=== PATIENT | female | born 1930 | race Hispanic/Latino ===

== ENCOUNTER 2021-02-26 18:22 | Emergency (ER) | payer OTHER ==
[2021-02-26 20:06] LABS: Absolute Lymphocytes (CBC) 1.1 K/uL (0.7-4.9); Basophils % 0.8 % (0-1.3); Hematocrit 38.6 % (36.0-45.0); Lymphocytes % 19.3 % (15.3-44.8); MPV 10.7 fL (7.6-11.3); RBC Red Blood Cell Count 4.12 M/uL (3.86-4.86)
[2021-02-26 20:23] LABS: Albumin 3.9 g/dL (3.4-5.0); Bilirubin Direct 0.2 mg/dL (0-0.2); Potassium 4.7 mmol/L (3.5-5.1); Protein, Total 7.2 g/dL (6.4-8.2)
[2021-02-26] MEDS ORDERED: NA CHLORIDE 0.9% 1,000 ML ONE (20:56)
[2021-02-26] MEDS ORDERED: ONDANSETRON 4 MG/2 ML VIAL ONE (20:56)
--- NOTE | 2021-02-26 21:19 | RAD REPORT ---
EXAM DESCRIPTION: CTAbdomen Pelvis W Contrast - 02/26/2021 8:55 pm CLINICAL HISTORY: Abdominal pain. NAUSEA / VOMITING COMPARISON: No comparisons TECHNIQUE: Biphasic CT imaging of the abdomen and pelvis was performed with 100 ml non-ionic IV cont rast. All CT scans are performed using dose optimization technique as appropriate and may include automated exposure control or mA/KV adjustment according to patient size. FINDINGS: The lung bases are clear.Cholecystectomy. Postsurgical changes at the gastroesophageal harini ction. The liver, spleen, pancreas, adrenal glands and kidneys are within normal limits. No bowel obstruction, free air, free fluid or abscess. There is mild inflammation surrounding the sig moid colon where numerous diverticula are present. This suggests a mild/early acute diverticulitis. M oderate stool is present throughout the colon. The appendix is not identified as a discrete structure , however, no secondary findings of appendicitis are identified. No evidence of significant lymphad enopathy. Moderate lumbar degenerative changes are present. IMPRESSION: Mild/early acute diverticulitis of the sigmoid colon suspected. Moderate stool is presen t throughout the colon.
--- NOTE | 2021-02-26 21:45 | ER ---
Nurse's Notes [facility] Name: Samra Richards Age: 89 yrs Sex: Female : 1930 Arrival Date: 02/26/2021 Time: 18:27 Bed 15 Private MD: Diagnosis: Diverticulitis of intestine, part unspecified, without perforation or abscess without bleeding Presentation: 02/26 18:32 Chief complaint: Patient states: N/V all day. Grandson has upset stomach also, states ll1 she believes they ate bad food. No pain or fever. Coronavirus screen: Client denies travel out of the [place] in the last 14 days. At this time, the client does not indicate any symptoms associated with coronavirus-19. Ebola Screen: Patient denies travel to an Ebola-affected area in the 21 days before illness onset. Initial Sepsis Screen: Does the patient meet any 2 criteria? Does the patient have a suspected source of infection? Yes: Acute abdominal pain. Risk Assessment: Do you want to hurt yourself or someone else? Patient reports no desire to harm self or others. Onset of symptoms was February 26, 2021. 18:32 Method Of Arrival: Ambulatory ll1 18:32 Acuity: MARY 3 ll1 Historical: - Allergies: 18:30 No Known Allergies; ll1 - PMHx: 18:30 Hypertensive disorder; ll1 - PSHx: 18:30 Cholecystectomy; ll1 - Immunization history:: Flu vaccine is not up to date. - Social history:: Smoking status: Patient denies any tobacco usage or history of. Screenin:46 Abuse screen: Denies threats or abuse. Denies injuries from another. Nutritional zb screening: No deficits noted. Tuberculosis screening: No symptoms or risk factors identified. Fall Risk None identified. Assessment: 19:46 General: Appears in no apparent distress. Behavior is calm, cooperative, appropriate zb for age. Pain: Denies pain. Neuro: Level of Consciousness is awake, alert, obeys commands, Oriented to person, place, time. Cardiovascular: Patient's skin is warm and dry. Respiratory: Airway is patent Respiratory effort is even, unlabored, Respiratory pattern is regular, symmetrical. GI: Abdomen is round obese, Bowel sounds present X 4 quads. Reports nausea, vomiting, since this morning. : No deficits noted. Derm: Skin is intact, is healthy with good turgor, Skin is dry, Skin is normal. Musculoskeletal: Range of motion: intact in all extremities. Vital Signs: 18:32 BP 190 / 83; Pulse 93; Resp 17; Temp 98.0; Pulse Ox 97% ; Weight 76.2 kg; Height 5 ft. ll1 2 in. (157.48 cm); Pain 0/10; 20:55 BP 168 / 86; Pulse 75; Resp 16; Pulse Ox 99% on R/A; zb 22:02 BP 170 / 84; Pulse 80; Resp 16; Pulse Ox 98% on R/A; zb 18:32 Body Mass Index 30.73 (76.20 kg, 157.48 cm) ll1 ED Course: 18:27 Patient arrived in ED. ds1 18:30 Arm band placed on. ll1 18:34 Triage completed. ll1 19:25 Jennifer Kendrick RN is Primary Nurse. zb 19:26 [facility] High [facility]-C [facility] kb 19:26 Tristin Dubon MD is Attending Physician. kb 19:47 Patient has correct armband on for positive identification. Pulse ox on. NIBP on. zb 19:47 Initial lab(s) drawn, by me, sent to lab. Inserted saline lock: 20 gauge in right zb antecubital area, using aseptic technique. Blood collected. 20:55 CT Abd/Pelvis - IV Contrast Only In Process Unspecified. EDMS 22:02 No provider procedures requiring assistance completed. IV discontinued, intact, zb bleeding controlled, No redness/swelling at site. Pressure dressing applied. Administered Medications: 20:38 Drug: NS 0.9% 1000 ml Route: IV; Rate: 1000 ml; Site: right antecubital; zb 22:01 Follow up: Response: No adverse reaction; Marked relief of symptoms; IV Status: zb Completed infusion; IV Intake: 1000ml 20:38 Drug: Zofran (Ondansetron) 4 mg Route: IVP; Site: right antecubital; zb 22:01 Follow up: Response: No adverse reaction; Marked relief of symptoms zb 22:00 Drug: Cipro (ciprofloxacin) 500 mg Route: PO; zb 22:01 Follow up: Response: Medication administered at discharge. zb 22:00 Drug: Flagyl (metroNIDAZOLE) 500 mg Route: PO; zb 22:01 Follow up: Response: Medication administered at discharge. zb Intake: 22:01 IV: 1000ml; Total: 1000ml. zb Outcome: 21:44 Discharge ordered by . clarence 22:02 Discharged to home ambulatory. zb 22:02 Condition: stable 22:02 Discharge instructions given to patient, family, Instructed on discharge instructions, follow up and referral plans. medication usage, Demonstrated understanding of instructions, follow-up care, medications, Prescriptions given X 3. 22:05 Patient left the ED. zb Signatures: Dispatcher [employer] EDMS Latisha High, SOCIAL INSURANCE SPECIALIST-C SOCIAL INSURANCE SPECIALIST-Claudette Neal ds1 Delio Sykes, RN RN ll1 Jennifer Kendrick RN RN eliz
--- NOTE | 2021-02-26 21:45 | EDPHYS ---
Physician Documentation [facility] Name: Samra Richards Age: 89 yrs Sex: Female : 1930 Arrival Date: 02/26/2021 Time: 18:27 Bed 15 Private MD: ED Physician Tristin Dubon HPI: 02/26 22:38 This 89 yrs old Female presents to ER via Ambulatory with complaints of Nausea.kb 22:38 The patient presents to the emergency department with nausea, vomiting. Onset: The kb symptoms/episode began/occurred this morning. Possible causes: bad food exposure. The symptoms are aggravated by nothing. The symptoms are alleviated by nothing. Associated signs and symptoms: Pertinent positives: nausea, vomiting, Pertinent negatives: abdominal pain, constipation, diarrhea, fever. Severity of symptoms: At their worst the symptoms were moderate in the emergency department the symptoms have improved. The patient has not experienced similar symptoms in the past. The patient has not recently seen a physician. Pt reports nausea and vomiting that started this morning. States she hasn't had any vomiting for 3 hours, but has been nauseated. States she believes she ate some bad food last night from a plate sale. Historical: - Allergies: 18:30 No Known Allergies; ll1 - PMHx: 18:30 Hypertensive disorder; ll1 - PSHx: 18:30 Cholecystectomy; ll1 - Immunization history:: Flu vaccine is not up to date. - Social history:: Smoking status: Patient denies any tobacco usage or history of. ROS: 22:37 Constitutional: Negative for fever, chills, and weight loss. kb 22:37 Abdomen/GI: Positive for nausea and vomiting, Negative for abdominal pain, diarrhea. 22:37 All other systems are negative. Exam: 22:37 Constitutional: This is a well developed, well nourished patient who is awake, alert, kb and in no acute distress. Head/Face: Normocephalic, atraumatic. ENT: Moist Mucous membranes Cardiovascular: Regular rate and rhythm with a normal S1 and S2. No gallops, murmurs, or rubs. No pulse deficits. Respiratory: Respirations even and unlabored. No increased work of breathing, no retractions or nasal flaring. Abdomen/GI: Soft, non-tender. No distention Skin: Warm, dry with normal turgor. Normal color. MS/ Extremity: Pulses equal, no cyanosis. Neurovascular intact. Full, normal range of motion. Neuro: Awake and alert, GCS 15, oriented to person, place, time, and situation. Moves all extremities. Normal gait. Psych: Awake, alert, with orientation to person, place and time. Behavior, mood, and affect are within normal limits. Vital Signs: 18:32 BP 190 / 83; Pulse 93; Resp 17; Temp 98.0; Pulse Ox 97% ; Weight 76.2 kg; Height 5 ft. ll1 2 in. (157.48 cm); Pain 0/10; 20:55 BP 168 / 86; Pulse 75; Resp 16; Pulse Ox 99% on R/A; zb 22:02 BP 170 / 84; Pulse 80; Resp 16; Pulse Ox 98% on R/A; zb 18:32 Body Mass Index 30.73 (76.20 kg, 157.48 cm) ll1 MDM: 19:27 Patient medically screened. kb 22:37 Data reviewed: vital signs, nurses notes. Data interpreted: Pulse oximetry: on room air kb is 98 %. Interpretation: normal. Counseling: I had a detailed discussion with the patient and/or guardian regarding: the historical points, exam findings, and any diagnostic results supporting the discharge/admit diagnosis, lab results, radiology results, the need for outpatient follow up, a family practitioner, to return to the emergency department if symptoms worsen or persist or if there are any questions or concerns that arise at home. 02/26 19:27 Order name: Basic Metabolic Panel; Complete Time: 20:29 kb 02/26 19:27 Order name: CBC with Diff; Complete Time: 20:21 kb 02/26 19:27 Order name: Hepatic Function; Complete Time: 20:29 kb 02/26 19:27 Order name: Lipase; Complete Time: 20:29 kb 02/26 20:29 Order name: CT Abd/Pelvis - IV Contrast Only; Complete Time: 21:28 kb 02/26 19:27 Order name: IV Saline Lock; Complete Time: 19:45 kb 02/26 19:27 Order name: Labs collected and sent; Complete Time: 19:45 kb 02/26 21:41 Order name: PO challenge; Complete Time: 22:00 kb Administered Medications: 20:38 Drug: NS 0.9% 1000 ml Route: IV; Rate: 1000 ml; Site: right antecubital; zb 22:01 Follow up: Response: No adverse reaction; Marked relief of symptoms; IV Status: zb Completed infusion; IV Intake: 1000ml 20:38 Drug: Zofran (Ondansetron) 4 mg Route: IVP; Site: right antecubital; zb 22:01 Follow up: Response: No adverse reaction; Marked relief of symptoms zb 22:00 Drug: Cipro (ciprofloxacin) 500 mg Route: PO; zb 22:01 Follow up: Response: Medication administered at discharge. zb 22:00 Drug: Flagyl (metroNIDAZOLE) 500 mg Route: PO; zb 22:01 Follow up: Response: Medication administered at discharge. zb Disposition: 02/27 04:20 Co-signature as Attending Physician, Tristin Dubon MD. [email or web address] Disposition Summary: 02/26/21 21:44 Discharge Ordered Location: Home kb Condition: Stable kb Diagnosis - Diverticulitis of intestine, part unspecified, without perforation or abscess kb without bleeding Followup: kb - With: Emergency Department - When: As needed - Reason: Worsening of condition Followup: kb - With: Private Physician - When: 2 - 3 days - Reason: Recheck today's complaints, Continuance of care, Re-evaluation by your physician Discharge Instructions: - Discharge Summary Sheet kb - Diverticulitis, [id number] kb Forms: - Medication Reconciliation Form kb - Thank You Letter kb - Antibiotic Education kb - Prescription Opioid Use kb Prescriptions: - Flagyl 500 mg Oral Tablet - take 1 tablet by ORAL route every 8 hours for 10 days; 30 tablet; Refills: 0, kb Product Selection Permitted - Zofran 4 mg Oral Tablet - take 1 tablet by ORAL route every 6 hours As needed; 20 tablet; Refills: 0, kb Product Selection Permitted - Cipro 500 mg Oral Tablet - take 1 tablet by ORAL route every 12 hours for 10 days; 20 tablet; Refills: 0, kb Product Selection Permitted Signatures: Dispatcher [employer] Latisha Carter FNP-C FNP-Delio Mcgee, RN RN 1 Tristin Dubon MD MD 7 Jennifer Kendrick RN RN z
[2021-02-26 22:17] VITALS: TEMP 98
[2021-02-26] MEDS ORDERED: CIPROFLOXACIN HCL 500 MG TAB ONE (22:18)
[2021-02-26] MEDS ORDERED: metroNIDAZOLE 500 MG TABLET ONE (22:18)
[2021-02-26 22:21] VITALS: BP 170/84; O2SAT 98
== END 2021-02-26 22:05 | disposition home or self-care (01) ==
LOC: ER 18:22
DX: K57.32 Diverticulitis of large intestine without perforation or abscess without bleeding (principal); I10 Essential (primary) hypertension
CPT/HCPCS: 96361; 85025; 80048; 36415; 80076; 83690; 74177; 96374; 99284; Q9967; J7030; J2405

== ENCOUNTER 2021-04-30 14:52 | Inpatient (IN) | payer OTHER ==
[2021-04-30] MEDS ORDERED: ONDANSETRON 4 MG/2 ML VIAL ONE ×3 (16:23→20:28)
[2021-04-30] MEDS ORDERED: NA CHLORIDE 0.9% 1,000 ML ONE ×2 (16:23→19:12)
[2021-04-30 16:31] LABS: Albumin 3.7 g/dL (3.4-5.0); Bilirubin Direct 0.4 mg/dL (0-0.2); Bilirubin Total 1.9 mg/dL (0.2-1.0); Protein, Total 7.6 g/dL (6.4-8.2)
[2021-04-30 16:47] LABS: Potassium 3.8 mmol/L (3.5-5.1)
[2021-04-30 17:25] LABS: Absolute Lymphocytes (CBC) 0.5 K/uL (0.7-4.9); Basophils % 0.4 % (0-1.3); Hematocrit 45.2 % (36.0-45.0); Lymphocytes % 2.3 % (15.3-44.8); RBC Red Blood Cell Count 4.84 M/uL (3.86-4.86)
[2021-04-30 17:30] LABS: Urine Blood Negative (Negative); Urine Glucose Negative (Negative); Urine Protein Negative (Negative)
[2021-04-30 18:08] LABS: Platelet Estimate ADEQ
[2021-04-30 18:09] LABS: Blood Morphology Comment NOT SEEN (NOT SEEN)
--- NOTE | 2021-04-30 19:04 | RAD REPORT ---
EXAM DESCRIPTION: CT - Abdomen Pelvis W Contrast - 04/30/2021 6:31 pm CLINICAL HISTORY: Abdominal pain COMPARISON: February 2021 TECHNIQUE: Computed axial tomography of the abdomen pelvis was obtained. 100 cc Isovue-300 was admin istered intravenously. Oral contrast was not requested which limits evaluation of bowel. All CT scans are performed using dose optimization technique as appropriate and may include automated exposure control or mA/KV adjustment according to patient size. FINDINGS: The liver, spleen, adrenal and kidneys appear unremarkable. Atrophic pancreas. Cholecystectomy. Small hiatal hernia Diverticula stem from predominantly sigmoid colon. No evidence diverticulitis. Mild stranding adjacent to the descending colon. Mild wall thickening present. IMPRESSION: Mild descending colon colitis
--- NOTE | 2021-04-30 19:08 | ER ---
Nurse's Notes [facility] Name: Samra Richards Age: 89 yrs Sex: Female : 1930 Arrival Date: 04/30/2021 Time: 15:11 Bed 16 Private MD: Diagnosis: Dehydration;Elevated white blood cell count;Colitis Presentation: 04/30 15:16 Chief complaint: Patient states: vomiting/diarrhea and abd pain that began yesterday. aa5 Pt currently vomiting bile in triage. Coronavirus screen: diarrhea, nausea, vomiting. Ebola Screen: Patient negative for fever greater than or equal to 101.5 degrees Fahrenheit, and additional compatible Ebola Virus Disease symptoms. Onset of symptoms was April 2021. 15:16 Method Of Arrival: Wheelchair aa 15:16 Acuity: MARY 3 aa5 15:16 Initial Sepsis Screen: Does the patient meet any 2 criteria? HR > 90 bpm. Does the aa5 patient have a suspected source of infection? No. Patient's initial sepsis screen is negative. Risk Assessment: Do you want to hurt yourself or someone else? Patient reports no desire to harm self or others. Triage Assessment: 15:30 General: Appears distressed, uncomfortable, obese, Behavior is cooperative, appropriate bp for age, anxious. Pain: Complains of pain in abdomen. EENT: No deficits noted. Neuro: Level of Consciousness is awake, alert, obeys commands, Oriented to Appropriate for age. Cardiovascular: No deficits noted. Respiratory: No deficits noted. GI: Reports nausea, vomiting. : No signs and/or symptoms were reported regarding the genitourinary system. Derm: No deficits noted. Musculoskeletal: No deficits noted. Historical: - Allergies: 15:16 No Known Allergies; aa5 - PMHx: 15:16 Hypertensive disorder; aa5 - PSHx: 15:16 Cholecystectomy; aa5 - Immunization history:: Client reports receiving the 2nd dose of the Covid vaccine. - Social history:: Smoking status: Patient denies any tobacco usage or history of. Screenin:00 Abuse screen: Denies threats or abuse. Denies injuries from another. Nutritional bp screening: No deficits noted. Tuberculosis screening: No symptoms or risk factors identified. Fall Risk None identified. Assessment: 15:30 General: SEE TRIAGE NOTE. bp 17:00 Reassessment: No changes from previously documented assessment. Patient and/or family bp updated on plan of care and expected duration. Pain level reassessed. GI: Abdomen is non-distended. 18:00 Reassessment: No changes from previously documented assessment. Patient and/or family bp updated on plan of care and expected duration. Pain level reassessed. Patient is alert, oriented x 3, equal unlabored respirations, skin warm/dry/pink. Vital Signs: 15:16 BP 148 / 90; Pulse 131; Resp 18 S; Temp 99.5(TE); Pulse Ox 98% on R/A; Weight 81.19 kg aa5 (R); Height 5 ft. 2 in. (157.48 cm); 17:24 BP 173 / 86; Pulse 117; Resp 18; Pulse Ox 96% on R/A; dh3 17:34 Temp 98.7(O); dh3 19:00 BP 161 / 78; Pulse 125; Resp 16; Pulse Ox 98% ; bp 18 00:05 BP 136 / 78 RA Supine (auto/lg); Pulse 110; Resp 19 S; Temp 100.5(O); Pulse Ox 98% on bs2 R/A; Pain 0/10; 04/30 15:16 Body Mass Index 32.74 (81.19 kg, 157.48 cm) aa5 ED Course: 04/30 15:11 Patient arrived in ED. as 15:16 Triage completed. aa5 15:16 Arm band placed on. aa5 15:19 Latisha High [facility]-C [facility]. kb 15:19 Augustine Cotter MD is Attending Physician. kb 15:20 Ankit Singh, KIT is Primary Nurse. bp 16:00 Patient has correct armband on for positive identification. Bed in low position. Call bp light in reach. Side rails up X2. Adult w/ patient. 17:10 IV discontinued, intact, bleeding controlled, Pressure dressing applied. dh3 17:12 Lab(s) recollected, by me, sent to lab. Inserted saline lock: 22 gauge in left dh3 antecubital area, using aseptic technique. Blood collected. 18:31 CT Abd/Pelvis - IV Contrast Only In Process Unspecified. EDMS 19:08 Patrick Feldman MD is Hospitalizing Provider. kb 19:58 Lipase Sent. bs2 19:58 Hepatic Function Sent. bs2 19:58 CBC with Diff Sent. bs2 19:59 Basic Metabolic Panel Sent. bs2 20:47 Lactate Sent. bs2 20:47 Procalcitonin Sent. bs2 05/01 00:03 No provider procedures requiring assistance completed. Patient admitted, IV remains in bs2 place. Administered Medications: 04/30 16:00 Drug: NS 0.9% 1000 ml Route: IV; Rate: 1000 ml; Site: left forearm; bp 20:47 Follow up: IV Status: Completed infusion bs2 16:00 Drug: Zofran (Ondansetron) 4 mg Route: IVP; Site: left forearm; bp 17:52 Follow up: Response: No adverse reaction bp 17:45 Drug: Zofran (Ondansetron) 4 mg Route: IVP; Site: left antecubital; bp 19:58 Follow up: Response: No adverse reaction bs2 20:46 Drug: Flagyl (metroNIDAZOLE) 500 mg Volume: 100 ml; Route: IVPB; Rate: 200 ml/hr; bs2 Infused Over: 30 mins; Site: left antecubital; 21:48 Follow up: IV Status: Completed infusion bs2 20:46 Drug: Zofran (Ondansetron) 4 mg Route: IVP; Site: left antecubital; bs2 21:48 Follow up: Response: No adverse reaction bs2 20:47 Drug: NS 0.9% 1000 ml Route: IV; Rate: 125 ml/hr; Site: left antecubital; bs2 23:50 Follow up: IV Status: Infusion continued upon admission bs2 20:47 Drug: NS 0.9% 500 ml Route: IV; Rate: bolus; Site: left antecubital; bs2 21:48 Follow up: IV Status: Completed infusion bs2 21:48 Drug: Cipro (ciprofloxacin) 400 mg Volume: 200 ml; Route: IVPB; Infused Over: 60 mins; bs2 Site: left forearm; 23:50 Follow up: IV Status: Completed infusion bs2 Outcome: 19:08 Decision to Hospitalize by Provider. clarence 05/01 00:03 Admitted to Med/surg via stretcher, room 214, with chart, Report called to Margaret bs2 Condition: stable Instructed on the need for admit. 00:05 Patient left the ED. bs2 Signatures: Dispatcher [employer] Latisha Carter, DISPATCH CLERK-C DISPATCH CLERK-Marilyn Mccarthy as Cheli Soto, RN RN aa5 Brooklyn Dunlap 3 Ankit Singh, RN RN bp Elzbieta Norwood, RN RN bs2
--- NOTE | 2021-04-30 19:09 | EDPHYS ---
Physician Documentation [facility] Name: Samra Richards Age: 89 yrs Sex: Female : 1930 Arrival Date: 04/30/2021 Time: 15:11 Bed 16 Private MD: ED Physician Augustine Cotter HPI: 04/30 20:44 This 89 yrs old Female presents to ER via Wheelchair with complaints of kb Vomiting. 20:44 The patient presents to the emergency department with nausea, vomiting, diarrhea, kb abdominal pain. Onset: The symptoms/episode began/occurred last night. Possible causes: unknown. The symptoms are aggravated by nothing. The symptoms are alleviated by nothing. Associated signs and symptoms: Pertinent positives: abdominal pain, diarrhea, nausea, vomiting. Severity of symptoms: At their worst the symptoms were moderate in the emergency department the symptoms are unchanged. The patient has not experienced similar symptoms in the past. The patient has not recently seen a physician. Pt reports n/v/d and abd pain that started at approx 2000 last night. Historical: - Allergies: 15:16 No Known Allergies; aa5 - PMHx: 15:16 Hypertensive disorder; aa5 - PSHx: 15:16 Cholecystectomy; aa5 - Immunization history:: Client reports receiving the 2nd dose of the Covid vaccine. - Social history:: Smoking status: Patient denies any tobacco usage or history of. ROS: 20:43 Constitutional: Negative for fever, chills, and weight loss. kb 20:43 Abdomen/GI: Positive for abdominal pain, nausea, vomiting, and diarrhea. 20:43 All other systems are negative. Exam: 20:43 Constitutional: This is a well developed, well nourished patient who is awake, alert, kb and in no acute distress. Head/Face: Normocephalic, atraumatic. ENT: Moist Mucous membranes Cardiovascular: Regular rate and rhythm with a normal S1 and S2. No gallops, murmurs, or rubs. No pulse deficits. Respiratory: Respirations even and unlabored. No increased work of breathing, no retractions or nasal flaring. Skin: Warm, dry with normal turgor. Normal color. MS/ Extremity: Pulses equal, no cyanosis. Neurovascular intact. Full, normal range of motion. Neuro: Awake and alert, GCS 15, oriented to person, place, time, and situation. Moves all extremities. Normal gait. Psych: Awake, alert, with orientation to person, place and time. Behavior, mood, and affect are within normal limits. 20:43 Abdomen/GI: Inspection: abdomen appears normal, Bowel sounds: normal, Palpation: soft, in all quadrants, mild abdominal tenderness, in the right upper quadrant and left upper quadrant. Vital Signs: 15:16 BP 148 / 90; Pulse 131; Resp 18 S; Temp 99.5(TE); Pulse Ox 98% on R/A; Weight 81.19 kg aa5 (R); Height 5 ft. 2 in. (157.48 cm); 17:24 BP 173 / 86; Pulse 117; Resp 18; Pulse Ox 96% on R/A; dh3 17:34 Temp 98.7(O); dh3 19:00 BP 161 / 78; Pulse 125; Resp 16; Pulse Ox 98% ; bp 05/01 00:05 BP 136 / 78 RA Supine (auto/lg); Pulse 110; Resp 19 S; Temp 100.5(O); Pulse Ox 98% on bs2 R/A; Pain 0/10; 04/30 15:16 Body Mass Index 32.74 (81.19 kg, 157.48 cm) aa5 MDM: 04/30 15:19 Patient medically screened. kb 20:42 Data reviewed: vital signs, nurses notes. Data interpreted: Pulse oximetry: on room air kb is 98 %. Interpretation: normal. Counseling: I had a detailed discussion with the patient and/or guardian regarding: the historical points, exam findings, and any diagnostic results supporting the discharge/admit diagnosis, lab results, radiology results, the need for further work-up and treatment in the hospital. Physician consultation: Scott GORE was contacted at 20:43, regarding admission, to the medical/surgical unit. patient's condition, and will see patient in ED, shortly. 20:44 Differential diagnosis: Nonspecific abd pain, gastritis, diverticulitis, viral kb gastroenteritis. 04/30 15:19 Order name: Basic Metabolic Panel kb 04/30 15:19 Order name: CBC with Diff kb 04/30 15:19 Order name: Hepatic Function kb 04/30 15:19 Order name: Lipase kb 04/30 15:19 Order name: Basic Metabolic Panel; Complete Time: 16:53 EDMS 04/30 15:19 Order name: CBC with Automated Diff; Complete Time: 18:22 EDMS 04/30 15:20 Order name: Liver (Hepatic) Function; Complete Time: 16:53 EDMS 04/30 15:20 Order name: Lipase; Complete Time: 16:53 EDMS 04/30 17:30 Order name: Urine Dipstick-Ancillary; Complete Time: 17:31 EDMS 04/30 18:08 Order name: Manual Differential; Complete Time: 18:22 EDMS 04/30 19:08 Order name: Blood Culture Adult (2) kb 04/30 19:08 Order name: Procalcitonin; Complete Time: 21:38 kb 04/30 19:08 Order name: Lactate; Complete Time: 21:38 kb 04/30 15:19 Order name: IV Saline Lock; Complete Time: 16:41 kb 04/30 15:19 Order name: Labs collected and sent; Complete Time: 16:41 kb 04/30 15:19 Order name: EKG; Complete Time: 15:20 kb 04/30 15:19 Order name: EKG - Nurse/Tech; Complete Time: 16:41 kb 04/30 15:19 Order name: CT Abd/Pelvis - IV Contrast Only; Complete Time: 19:05 kb 04/30 16:32 Order name: Labs - recollect needed: recollect cbc hemolyzed; Complete Time: 17:17 eb 04/30 16:54 Order name: Vital Signs; Complete Time: 17:31 kb 04/30 20:11 Order name: SARS-COV-2 RT PCR; Complete Time: 20:11 EDMS Administered Medications: 16:00 Drug: NS 0.9% 1000 ml Route: IV; Rate: 1000 ml; Site: left forearm; bp 20:47 Follow up: IV Status: Completed infusion bs2 16:00 Drug: Zofran (Ondansetron) 4 mg Route: IVP; Site: left forearm; bp 17:52 Follow up: Response: No adverse reaction bp 17:45 Drug: Zofran (Ondansetron) 4 mg Route: IVP; Site: left antecubital; bp 19:58 Follow up: Response: No adverse reaction bs2 20:46 Drug: Flagyl (metroNIDAZOLE) 500 mg Volume: 100 ml; Route: IVPB; Rate: 200 ml/hr; bs2 Infused Over: 30 mins; Site: left antecubital; 21:48 Follow up: IV Status: Completed infusion bs2 20:46 Drug: Zofran (Ondansetron) 4 mg Route: IVP; Site: left antecubital; bs2 21:48 Follow up: Response: No adverse reaction bs2 20:47 Drug: NS 0.9% 1000 ml Route: IV; Rate: 125 ml/hr; Site: left antecubital; bs2 23:50 Follow up: IV Status: Infusion continued upon admission bs2 20:47 Drug: NS 0.9% 500 ml Route: IV; Rate: bolus; Site: left antecubital; bs2 21:48 Follow up: IV Status: Completed infusion bs2 21:48 Drug: Cipro (ciprofloxacin) 400 mg Volume: 200 ml; Route: IVPB; Infused Over: 60 mins; bs2 Site: left forearm; 23:50 Follow up: IV Status: Completed infusion bs2 Disposition: 05/01 08:08 Co-signature as Attending Physician, Augustine Cotter MD I agree with the assessment and kdr plan of care. Disposition Summary: 04/30/21 19:08 Hospitalization Ordered Hospitalization Status: Inpatient Admission kb Provider: Patrick Feldman Location: Telemetry/MedSurg (Inpatient) kb Condition: Stable kb Problem: new kb Symptoms: are unchanged kb Bed/Room Type: Standard Room Assignment: 214(04/30/21 22:16) cg Diagnosis - Dehydration kb - Elevated white blood cell count kb - Colitis kb Forms: - Medication Reconciliation Form kb - SBAR form kb Signatures: Dispatcher [employer] Latisha Carter, ASHLEY-C ASHLEY-Augustine Hanna MD MD kdr Calderon, Audri RN RN aa5 Scott Cordoba FNP-C DINING SERVICE SUPERVISOR-Cla1 Pita Lester, KIT RN Ankit Soriano RN RN Shilpi Burton Bridget RN RN bs2 Corrections: (The following items were deleted from the chart) 04/30 19:16 15:20 CORONAVIRUS+MR.LAB.BRZ ordered. EDOR EDMS 22:16 19:08 kb cg
--- NOTE | 2021-04-30 20:03 | P.HP ---
Certification for Inpatient Patient admitted to: Inpatient With expected LOS: >2 Midnights Patient will require the following post-hospital care: None Practitioner: I am a practitioner with admitting privileges, knowledge of patient current condition, hospital course, and medical plan of care. Services: Services provided to patient in accordance with Admission requirements found in Title 42 Section 412.3 of the Code of Federal Regulations Patient History Date of Service: 04/30/21 Primary Care Provider: Out of town Reason for admission: Colitis History of Present Illness: 89-year-old female with history of hypertension, GERD, arthritis presents emergency [place] for abdominal pain, nausea, vomiting, diarrhea. Pat ient reports nausea, vomiting, abdominal pain started last night has been unable to tolerate any by mouth over the course of last 12 hours. Patient was evaluated in the emergency room and labs are significant for white blood cell count 23 hemoglobin 15.1 hematocrit 45.2 with left shift sodium 134 CO2 19 BUN 35 GFR 47 glucose 175 urinalysis negative for signs of infection CT abdomen pelvis with contrast demonstrated mild ascending colitis. Patient with mild left-sided abdominal tenderness on exam and tachycardic with rate around 110-120 sinus tachycardia. Procalcitonin, lactate, blood cultures ordered and pending at this time patient started on Cipro/Flagyl IV. ED provider wishes to admit for further evaluation and management of colitis. - Past Medical/Surgical History -: Hypertension -: GERD -: Arthritis -: Cholecystectomy -: Appendectomy -: Hernia repair Psychosocial/ Personal History: Patient is retired lives at home with her son - Family History Brother -: Cancer - Social History Smoking Status: Never smoker Alcohol use: No CD- Drugs: No Caffeine use: No Place of Residence: Home Review of Systems 10-point ROS is otherwise unremarkable General: Weakness, Malaise Gastrointestinal: Nausea, Vomiting, Abdominal Pain Physical Examination - Physical Exam General: Alert, In no apparent distress, Oriented x3 HEENT: Atraumatic, PERRLA, Other (Mucous membranes dry), EOMI, Sclerae nonicteric Neck: Supple, 2+ carotid pulse no bruit, No LAD, Without JVD or thyroid abnormality Respiratory: Clear to auscultation bilaterally, Normal air movement Cardiovascular: Regular rate/rhythm, Normal S1 S2 Gastrointestinal: Normal bowel sounds, Tenderness (Mild left-sided abdominal tenderness) Musculoskeletal: No tenderness Integumentary: No rashes Neurological: Normal gait, Normal speech, Normal strength at 5/5 x4 extr, Normal tone, Normal affect Lymphatics: No axilla or inguinal lymphadenopathy - Studies Laboratory Data (last 24 hrs) 04/30/21 17:08: WBC 23.00 H*, Hgb 15.1 H, Hct 45.2 H, Plt Count 185 04/30/21 16:00: Sodium 134 L, Potassium 3.8, BUN 35 H, Creatinine 1.10, Glucose 175 H, Total Bilirubin 1.9 H, AST 22, ALT 19, Alkaline Phosphatase 161 H, Lipase 21 L Assessment and Plan - Plan Assessment: Leukocytosis, intractable vomiting, diarrhea, abdominal pain secondary to descending colitis Hypertension GERD Arthritis Plan: Leukocytosis, intractable vomiting, diarrhea, abdominal pain secondary to descending colitis: Continue with n.p.o. status, IV fluids, IV Cipro/Flagyl, blood cultures/lactate levels pending. Patient without severe sepsis or septic shock at this time. 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 A discharge patient will need to follow-up with gastroenterology. We will also provide medication for refluxProtonix. Stool studies ordered Hypertension: N.p.o. at this time will provide medication as needed. GERD: IV Protonix Arthritis: As needed medications DVT PPX: Lovenox Code status: Full Discharge Plan: Home Plan to discharge in: 72 Hours - Advance Directives Does patient have a Living Will: No Does patient have a Durable POA for Healthcare: No - Code Status/Comfort Care Code Status Assessed: Yes (Full code) Critical Care: No Time Spent Managing Pts Care (In Minutes): 55
[2021-04-30] MEDS ORDERED: CIPROFLOXACIN 400mg IV 400 MG/200 ML BAG IV ONE (20:28)
[2021-04-30] MEDS ORDERED: METRONIDAZOLE 500mg IVPB 500 MG/100 ML BAG IV ONE (20:28)
[2021-04-30] MEDS: NA CHLORIDE 0.9% 1,000 ML IV SCH (20:51)
[2021-04-30] MEDS ORDERED: SODIUM CHLORIDE 0.9% 10ML INJ IV PRN (20:51)
[2021-04-30] MEDS ORDERED: PROMETHAZINE INJ 25 MG/ML AMP IV ONE (21:00)
[2021-04-30] MEDS: PANTOPRAZOLE 40 MG INJ IVP SCH (21:00)
[2021-04-30] MEDS ORDERED: CIPROFLOXACIN 400mg IV 400 MG/200 ML BAG IV SCH (21:00)
[2021-04-30] MEDS ORDERED: PROMETHAZINE INJ 25 MG/ML AMP ONE (21:32)
[2021-04-30] MEDS ORDERED: PANTOPRAZOLE 40 MG INJ ONE (21:55)
[2021-05-01] MEDS: ONDANSETRON 4 MG/2 ML VIAL IV PRN ×3 (00:42→18:22)
[2021-05-01 01:19] VITALS: BMI 32.1
[2021-05-01] MEDS: METRONIDAZOLE 500mg IVPB 500 MG/100 ML BAG IV SCH ×3 (01:20→16:52)
[2021-05-01 04:36] LABS: Absolute Lymphocytes (CBC) 0.7 K/uL (0.7-4.9); Basophils % 0.3 % (0-1.3); Hematocrit 38.4 % (36.0-45.0); Lymphocytes % 3.8 % (15.3-44.8); MPV 10.2 fL (7.6-11.3); RBC Red Blood Cell Count 4.06 M/uL (3.86-4.86)
[2021-05-01 04:53] LABS: Albumin 2.9 g/dL (3.4-5.0); Bilirubin Total 1.6 mg/dL (0.2-1.0); Magnesium 1.7 mg/dL (1.8-2.4); Potassium 3.2 mmol/L (3.5-5.1); Protein, Total 5.9 g/dL (6.4-8.2); Thyroid Stimulating Hormone 0.492 uIU/mL (0.360-3.740)
[2021-05-01 05:21] LABS: Urine Appearance CLEAR (Clear); Urine Bilirubin NEGATIVE (Negative); Urine Blood NEGATIVE (Negative); Urine Color DK YELLOW (Yellow); Urine Glucose NEGATIVE (Negative); Urine Protein NEGATIVE (Negative); Urine Specific Gravity >=1.030 (1.005-1.030); Urine Urobilinogen 0.2 mg/dL (0.2-1.0)
[2021-05-01 05:38] LABS: Urine Microscopic Reflex NO UMIC
--- NOTE | 2021-05-01 06:01 | P.PN ---
Subjective Date of Service: 05/01/21 Primary Care Provider: Out of town Chief Complaint: Colitis Subjective: Improving (Feeling better this morning, no nausea, abdominal pain improved, reports dry mouth, diarrhea yesterday) Review of Systems 10-point ROS is otherwise unremarkable Physical Examination - Vital Signs Temperature: 98.0 F Blood Pressure: 139/65 Pulse: 76 Respirations: 17 Pulse Ox (%): 94 - Studies Laboratory Data (last 24 hrs) 04/30/21 17:08: WBC 23.00 H*, Hgb 15.1 H, Hct 45.2 H, Plt Count 185 04/30/21 16:00: Sodium 134 L, Potassium 3.8, BUN 35 H, Creatinine 1.10, Glucose 175 H, Total Bilirubin 1.9 H, AST 22, ALT 19, Alkaline Phosphatase 161 H, Lipase 21 L Assessment & Plan Physician Review Additional Text: Physical exam GEN: Alert, oriented, NAD HEENT: Normal conjunctiva, sclera anicteric CV: Regular rate and rhythm, no edema Pulm: Non-labored respiration on room air ABD: Soft, mild-mod abdominal tenderness, no distention Neuro: Normal speech, normal affect Problem List Leukocytosis, intractable vomiting, diarrhea, abdominal pain secondary to descending colitis Hypertension GERD Arthritis Can have ice chips this morning, advance to clear liquid diet for dinner if doing well Continue IV fluids Continue Cipro and Flagyl Follow blood cultures Patient does not appear septic She feels that she is improving, no longer with nausea Obtain/confirm home medications, restart home antihypertensives once taking p.o. and patient is hypertensive DVT PPX: Lovenox Code status: Full Dispo: Anticipate discharge home in 1-2 days Time Spent Managing Pts Care (In Minutes): 35
[2021-05-01] MEDS ORDERED: MAGNESIUM SULFATE 1 gm IVPB 1 GM/100 ML BAG IV ONE (06:28)
[2021-05-01] MEDS: NA CHLORIDE 0.9% 1,000 ML IV SCH ×2 (06:41→16:52)
[2021-05-01] MEDS: KCL 20 MEQ/100 mL IVPB 20 MEQ/100 ML BAG IV SCH ×2 (06:42→11:19)
[2021-05-01] MEDS: PANTOPRAZOLE 40 MG INJ IVP SCH ×2 (08:34→21:03)
[2021-05-01] MEDS: ENOXAPARIN 30 MG/0.3 ML SQ SCH (08:34)
[2021-05-01] MEDS ORDERED: CIPROFLOXACIN 400mg IV 400 MG/200 ML BAG IV SCH (09:00)
[2021-05-01] MEDS ORDERED: ENOXAPARIN 40 MG/0.4 ML SQ SCH (09:00)
[2021-05-01] MEDS: CIPROFLOXACIN 400mg IV 400 MG/200 ML BAG IV SCH (21:03)
[2021-05-02] MEDS: METRONIDAZOLE 500mg IVPB 500 MG/100 ML BAG IV SCH ×3 (00:41→17:00)
[2021-05-02] MEDS: KCL 20 MEQ/100 mL IVPB 20 MEQ/100 ML BAG IV SCH ×2 (00:45→04:56)
[2021-05-02] MEDS: NA CHLORIDE 0.9% 1,000 ML IV SCH (02:51)
[2021-05-02 05:55] LABS: Basophils % 0.3 % (0-1.3); Hematocrit 34.5 % (36.0-45.0); Lymphocytes % 8.5 % (15.3-44.8); RBC Red Blood Cell Count 3.71 M/uL (3.86-4.86)
--- NOTE | 2021-05-02 06:00 | P.PN ---
Subjective Date of Service: 05/02/21 Primary Care Provider: Out of town Chief Complaint: Colitis Subjective: Improving (Slight abdominal pain last night with some mild nausea. Tolerating clear liquid diet this morning, no nausea or pain this morning. States she is starting to feel better. Continues with some diarrhea) Review of Systems 10-point ROS is otherwise unremarkable Physical Examination - Vital Signs Temperature: 97.8 F Blood Pressure: 131/64 Pulse: 94 Respirations: 17 Pulse Ox (%): 97 Assessment & Plan Physician Review Additional Text: Physical exam GEN: Alert, oriented, NAD HEENT: Normal conjunctiva, sclera anicteric CV: Regular rate and rhythm, no edema Pulm: Non-labored respiration on room air ABD: Soft, mild abdominal tenderness, no distention Neuro: Normal speech, normal affect Problem List Leukocytosis, intractable vomiting, diarrhea, abdominal pain secondary to descending colitis Hypertension GERD Arthritis Advance to full liquids for lunch, soft diet for dinner if continues to do well DC IV fluids Continue Cipro and Flagyl Blood cultures with no growth so far She feels that she is improving, no longer with nausea since yesterday restart home antihypertensives once taking p.o. and appropriate DVT PPX: Lovenox Code status: Full Dispo: Anticipate discharge home tomorrow if continues to improve, tolerates diet Time Spent Managing Pts Care (In Minutes): 40
[2021-05-02 06:28] LABS: Albumin 2.6 g/dL (3.4-5.0); Magnesium 1.6 mg/dL (1.8-2.4); Potassium 3.6 mmol/L (3.5-5.1)
[2021-05-02 06:32] LABS: Bilirubin Total 1.3 mg/dL (0.2-1.0); Protein, Total 5.4 g/dL (6.4-8.2)
[2021-05-02] MEDS ORDERED: MAGNESIUM SULFATE 1 gm IVPB 1 GM/100 ML BAG IV ONE (09:00)
[2021-05-02] MEDS: PANTOPRAZOLE 40 MG INJ IVP SCH (09:40)
[2021-05-02] MEDS: ENOXAPARIN 30 MG/0.3 ML SQ SCH (09:40)
[2021-05-02] MEDS: ONDANSETRON 4 MG/2 ML VIAL IV PRN ×2 (17:00→22:08)
[2021-05-02] MEDS: CIPROFLOXACIN 400mg IV 400 MG/200 ML BAG IV SCH (20:23)
[2021-05-02] MEDS ORDERED: POTASSIUM CL SA 10 MEQ TAB PO ONE (21:00)
[2021-05-03] MEDS: METRONIDAZOLE 500mg IVPB 500 MG/100 ML BAG IV SCH ×3 (00:32→16:00)
[2021-05-03 05:38] LABS: Basophils % 0.2 % (0-1.3); Hematocrit 32.7 % (36.0-45.0); Lymphocytes % 11.9 % (15.3-44.8); MPV 9.7 fL (7.6-11.3); RBC Red Blood Cell Count 3.43 M/uL (3.86-4.86)
[2021-05-03 05:57] LABS: Albumin 2.5 g/dL (3.4-5.0); Bilirubin Total 0.8 mg/dL (0.2-1.0); Magnesium 1.6 mg/dL (1.8-2.4); Potassium 3.7 mmol/L (3.5-5.1); Protein, Total 5.2 g/dL (6.4-8.2)
[2021-05-03] MEDS: ENOXAPARIN 30 MG/0.3 ML SQ SCH (08:04)
[2021-05-03] MEDS ORDERED: POTASSIUM CL SA 10 MEQ TAB PO ONE (09:00)
[2021-05-03] MEDS ORDERED: MAGNESIUM SULFATE 1 gm IVPB 1 GM/100 ML BAG IV ONE (09:00)
[2021-05-03] MEDS: MORPHINE 2 MG/ML SYR IV PRN ×3 (10:00→22:39)
[2021-05-03] MEDS: ONDANSETRON 4 MG/2 ML VIAL IV PRN ×3 (10:18→22:36)
[2021-05-03] MEDS ORDERED: LIDOCAINE 1% W/EPI 1:100,000 MDV 20 ML VIAL ONE (11:09)
--- NOTE | 2021-05-03 17:43 | P.PN ---
Subjective Date of Service: 05/03/21 Primary Care Provider: Out of town Chief Complaint: Colitis Subjective: Worsening (Had worsening abdominal pain after eating Jell-O this morning. Some slight nausea associated with this.) Review of Systems 10-point ROS is otherwise unremarkable Physical Examination - Vital Signs Temperature: 97.3 F Blood Pressure: 157/74 Pulse: 72 Respirations: 17 Pulse Ox (%): 94 Assessment & Plan Physician Review Additional Text: Physical exam GEN: Alert, oriented, uncomfortable appearing HEENT: Normal conjunctiva, sclera anicteric CV: Regular rate and rhythm, no edema Pulm: Non-labored respiration on room air ABD: Soft, mild abdominal tenderness, no distention Neuro: Normal speech, normal affect Problem List Leukocytosis, intractable vomiting, diarrhea, abdominal pain secondary to descending colitis Hypertension GERD Arthritis De-escalate to clear liquid diet Continue Cipro and Flagyl Blood cultures with no growth so far Was initially improving, however with some nausea and worsening abdominal pain this morning after eating restart home antihypertensives once taking p.o. and appropriate DVT PPX: Lovenox Code status: Full Dispo: Anticipate discharge home tomorrow if continues to improve, tolerates diet Time Spent Managing Pts Care (In Minutes): 35
[2021-05-03] MEDS: CIPROFLOXACIN 400mg IV 400 MG/200 ML BAG IV SCH (20:08)
[2021-05-04] MEDS: METRONIDAZOLE 500mg IVPB 500 MG/100 ML BAG IV SCH ×3 (00:51→16:00)
[2021-05-04 04:36] LABS: Basophils % 0.5 % (0-1.3); Hematocrit 34.3 % (36.0-45.0); Lymphocytes % 10.6 % (15.3-44.8); MPV 10.3 fL (7.6-11.3); RBC Red Blood Cell Count 3.54 M/uL (3.86-4.86)
[2021-05-04 04:46] LABS: Albumin 2.4 g/dL (3.4-5.0); Magnesium 1.5 mg/dL (1.8-2.4); Potassium 3.5 mmol/L (3.5-5.1); Protein, Total 5.1 g/dL (6.4-8.2)
[2021-05-04] MEDS: MORPHINE 2 MG/ML SYR IV PRN ×3 (05:02→20:26)
[2021-05-04 05:06] LABS: Blood Morphology Comment NOT SEEN (NOT SEEN); Platelet Estimate DECR; White Blood Cell Scan OK (OK)
[2021-05-04] MEDS ORDERED: NA CHLORIDE 0.9% 250 ML ONE (05:49)
[2021-05-04] MEDS ORDERED: Magnesium Sulfate 2gm IVPB 2 G/50 ML BAG IV ONE (06:00)
[2021-05-04] MEDS: TELMISARTAN PO SCH (08:56)
[2021-05-04] MEDS: HCTZ PO SCH (08:56)
[2021-05-04] MEDS: ENOXAPARIN 30 MG/0.3 ML SQ SCH (08:57)
[2021-05-04] MEDS ORDERED: POTASSIUM CL SA 10 MEQ TAB PO ONE (09:00)
[2021-05-04] MEDS ORDERED: VALSARTAN 160 MG TAB PO SCH (09:00)
[2021-05-04] MEDS ORDERED: hydroCHLOROthiazide 12.5 MG CAP PO SCH (09:00)
[2021-05-04] MEDS: ONDANSETRON 4 MG/2 ML VIAL IV PRN ×2 (12:14→20:25)
--- NOTE | 2021-05-04 19:07 | P.PN ---
Subjective Date of Service: 05/04/21 Primary Care Provider: Out of town Chief Complaint: Colitis Patient has some abdominal pain with full liquid diet but no vomiting. Physical Examination - Vital Signs Temperature: 98.6 F Blood Pressure: 158/70 Pulse: 77 Respirations: 20 Pulse Ox (%): 96 Assessment And Plan Physician Review Additional Text: Physical exam GEN: Alert, oriented, uncomfortable appearing HEENT: Normal conjunctiva, sclera anicteric CV: Regular rate and rhythm, no edema Pulm: Non-labored respiration on room air ABD: Soft, mild abdominal tenderness, no distention Neuro: Normal speech, normal affect Problem List Leukocytosis, intractable vomiting, diarrhea, abdominal pain secondary to descending colitis Hypertension GERD Arthritis Continue Full liquid diet Continue Cipro and Flagyl Blood cultures with no growth. No diarrhea. Continue other home medications. DVT PPX: Lovenox Code status: Full
[2021-05-04] MEDS: CIPROFLOXACIN 400mg IV 400 MG/200 ML BAG IV SCH (20:25)
[2021-05-05] MEDS: METRONIDAZOLE 500mg IVPB 500 MG/100 ML BAG IV SCH ×2 (01:50→09:00)
[2021-05-05 07:31] LABS: Potassium 3.4 mmol/L (3.5-5.1)
[2021-05-05] MEDS: ENOXAPARIN 30 MG/0.3 ML SQ SCH (09:00)
[2021-05-05] MEDS: TELMISARTAN PO SCH (09:08)
[2021-05-05] MEDS: HCTZ PO SCH (09:08)
[2021-05-05 09:16] VITALS: O2SAT 97
--- NOTE | 2021-05-05 11:13 | P.DS ---
Admission Date: 04/30/21 Discharge Date: 05/07/21 Primary Care Provider: Out of town Disposition: ROUTINE DISCHARGE Discharge Condition: FAIR Reason for Admission: Colitis - Problems (1) Colitis Current Visit: Yes Status: Acute (2) Essential hypertension Current Visit: Yes Status: Acute (3) GERD (gastroesophageal reflux disease) Current Visit: Yes Status: Acute Brief History of Present Illness: 89-year-old woman with history of hypertension, GERD and arthritis presents emergency department for abdominal pain, nausea, vomiting, diarrhea. Patient reported nausea, vomiting, abdominal pain and was unable to tolerate anything by mouth over the course of last 12 hours. Patient was evaluated in the emergency room and labs were significant for white blood cell count 23 hemoglobin 15.1 h ematocrit 45.2 with left shift sodium 134 CO2 19 BUN 35 GFR 47 glucose 175 urinalysis negative for signs of infection CT abdomen pelvis with contrast demonstrated mild ascending colitis. Patient with mild left-sided abdominal tenderness on exam and tachycardic with rate around 110-120 sinus tachycardia. Patient started on Cipro/Flagyl IV and admitted for further management. Hospital Course: Patient admitted to the medical floor and treated with IV ciprofloxacin and Flagyl. Initially kept NPO due to intractable nausea and vomiting. Her abdominal symptoms gradually improved with treatment. Leukocytosis resolved. Patient tolerated diet advancement to soft diet. She initially had diarrhea but his stool became formed. Patient had abdominal pain with meals intermittently. She has GERD was therefore placed on Protonix b.i.d. sucralfate also ordered to be taking before meals. She had a brief run what appears to be atrial flutter but EKG suggested sinus tachycardia during the event. Patient was asymptomatic. She has tolerated soft diet and deemed stable for discharge. She will follow with Dr. Altamirano as outpatient regarding the abnormal rhythm noted on the alarm security or surveillance monitor. Vital Signs/Physical Exam: Temp Pulse Resp BP Pulse Ox 98.3 F 74 17 124/83 97 05/05/21 08:00 05/05/21 08:00 05/05/21 08:00 05/05/21 08:00 05/05/21 08:00 General: Alert, In no apparent distress, Oriented x3 HEENT: Mucous membr. moist/pink Neck: JVD not distended Respiratory: Clear to auscultation bilaterally, Normal air movement Cardiovascular: No edema, Normal pulses, Normal S1 S2 Capillary refill: <2 Seconds Gastrointestinal: Normal bowel sounds, Soft and benign, Non-distended, No tenderness Musculoskeletal: No swelling, No tenderness Integumentary: No rashes Neurological: Normal strength at 5/5 x4 extr Laboratory Data at Discharge: WBC 9.60 K/uL (4.3-10.9) 05/04/21 04:03 Hgb 11.8 g/dL (12.0-15.0) L 05/04/21 04:03 Hct 34.3 % (36.0-45.0) L 05/04/21 04:03 Plt Count 76 K/uL (152-406) L D 05/04/21 04:03 Sodium 138 mmol/L (136-145) 05/05/21 06:43 Potassium 3.4 mmol/L (3.5-5.1) L 05/05/21 06:43 BUN 8 mg/dL (7-18) 05/05/21 06:43 Creatinine 0.75 mg/dL (0.55-1.3) 05/05/21 06:43 Glucose 114 mg/dL (74-106) H 05/05/21 06:43 Magnesium 1.9 mg/dL (1.8-2.4) 05/04/21 14:21 Total Bilirubin 1.0 mg/dL (0.2-1.0) 05/04/21 04:03 AST 22 U/L (15-37) 05/04/21 04:03 ALT 14 U/L (12-78) 05/04/21 04:03 Alkaline Phosphatase 47 U/L (45-117) 05/04/21 04:03 Triglycerides 47 mg/dL (<150) 05/01/21 04:15 Cholesterol 128 mg/dL (<200) 05/01/21 04:15 HDL Cholesterol 78 mg/dL (40-60) H 05/01/21 04:15 Cholesterol/HDL Ratio 1.64 05/01/21 04:15 Lipase 21 U/L (73-393) L 04/30/21 16:00 Home Medications: Cyanocobalamin (Vitamin B-12) [Vitamin B-12] 2,500 mcg SL DAILY 05/01/21 Hydrocodone 5/APAP 325 [[place] 5/325*] 1 tab PO TID PRN 05/01/21 Telmisartan/Hydrochlorothiazid [Telmisartan-Hctz 80-12.5 mg Tb] 1 each PO DAILY 05/01/21 Dexlansoprazole [Dexilant] 1 cap PO BID #60 05/07/21 Sucralfate [Carafate*] 10 ml PO ACHS #60 ucup 05/07/21 New Medications: Sucralfate [Carafate*] 10 ml PO ACHS #60 ucup Dexlansoprazole [Dexilant] 1 cap PO BID #60 Physician Discharge Instructions: PROBLEM: Colitis GOAL: Clear understanding of disease process INSTRUCTIONS: Okay to discharge home Follow up with primary care doctor in 1 week Follow up with cardiology in 1 week Take antibiotics with food Take all medications as prescribed If you have any questions regarding your hospital stay call [phone] Come back to emergency room or call 911 if your symtoms worsen Diet: AHA; soft diet Activity: Ad amish DME DME: None Date Ordered: Name of Company: [employer] Services Needed: None Name of Company: Date or Referral: IMMUNIZATION Influenza Vaccine Indicated: No Influenza Vaccine Given: Date Given: Pneumonia Vaccine Indicated: No Pneumonia Vaccine Given: Date Given: Diet: AHA Activity: Ad amish Followup: Ron Altamirano MD [ACTIVE - CAN ADMIT] - 1-2 Weeks (Follow up for Sinus tachycardia and brief run of Afib/atrial flutter.) NONE,NONE [Primary Care Provider] - 1-2 Weeks Time spent managing pt's care (in minutes): 37
[2021-05-05] MEDS: MORPHINE 2 MG/ML SYR IV PRN (11:54)
[2021-05-05] MEDS: ONDANSETRON 4 MG/2 ML VIAL IV PRN ×2 (11:54→23:56)
[2021-05-05] MEDS ORDERED: SODIUM CHLORIDE 0.9% 10ML INJ IV PRN (13:43)
--- NOTE | 2021-05-05 13:52 | P.PN ---
Subjective Date of Service: 05/05/21 Primary Care Provider: Out of town Chief Complaint: Colitis Patient vomited before lunch and was complaining of abdominal pain. She tolerated full liquid diet this morning. Physical Examination - Vital Signs Temperature: 97.3 F Blood Pressure: 160/75 Pulse: 85 Respirations: 20 Pulse Ox (%): 97 - Physical Exam General: Alert, In no apparent distress Assessment And Plan - Current Problems (Diagnosis) (1) Colitis Current Visit: Yes Status: Acute (2) Essential hypertension Current Visit: Yes Status: Acute (3) GERD (gastroesophageal reflux disease) Current Visit: Yes Status: Acute Physician Review Additional Text: Physical exam GEN: Alert, oriented, uncomfortable appearing HEENT: Normal conjunctiva, sclera anicteric CV: Regular rate and rhythm, no edema Pulm: Non-labored respiration on room air, clear to auscultation bilaterally ABD: Soft, nontender, no distention Neuro: Normal speech, normal affect Problem List Leukocytosis, intractable vomiting, diarrhea, abdominal pain secondary to descending colitis Hypertension GERD Arthritis Patient with intermittent nausea and vomiting. I suspect this is secondary to IV Flagyl or GERD Discontinue antibiotics. Start IV proton. GI consult if no improvement. Clear liquid diet rest of the day. Blood cultures with no growth. No diarrhea. Stool is formed. Continue other home medications. Patient's son is updated. DVT PPX: Lovenox Code status: Full
[2021-05-05] MEDS ORDERED: POTASSIUM CL 40 MEQ in NA CHLORIDE 0.9% 500 ML IV SCH (14:00)
[2021-05-05] MEDS: PANTOPRAZOLE 40 MG INJ IVP SCH ×2 (14:47→19:57)
[2021-05-06] MEDS: MORPHINE 2 MG/ML SYR IV PRN ×3 (01:06→15:37)
[2021-05-06 06:22] LABS: Potassium 3.8 mmol/L (3.5-5.1)
[2021-05-06] MEDS ORDERED: POTASSIUM CL SA 10 MEQ TAB PO ONE (06:55)
[2021-05-06] MEDS: PANTOPRAZOLE 40 MG INJ IVP SCH ×2 (09:33→20:30)
[2021-05-06] MEDS: ENOXAPARIN 30 MG/0.3 ML SQ SCH (09:34)
[2021-05-06] MEDS: TELMISARTAN PO SCH (09:34)
[2021-05-06] MEDS: HCTZ PO SCH (09:34)
[2021-05-06] MEDS: ONDANSETRON 4 MG/2 ML VIAL IV PRN (15:37)
--- NOTE | 2021-05-06 18:26 | P.PN ---
Subjective Date of Service: 05/06/21 Primary Care Provider: Out of town Chief Complaint: Colitis Patient with abdominal pain after eating soft diet during lunch today. Physical Examination - Vital Signs Temperature: 98.4 F Blood Pressure: 133/59 Pulse: 82 Respirations: 14 Pulse Ox (%): 95 - Physical Exam General: Alert, In no apparent distress, Oriented x3 HEENT: Mucous membr. moist/pink Neck: JVD not distended Respiratory: Clear to auscultation bilaterally, Normal air movement Cardiovascular: No edema, Regular rate/rhythm, Normal S1 S2 Gastrointestinal: Soft and benign, Non-distended, No tenderness Musculoskeletal: No swelling Integumentary: No rashes Neurological: Normal speech, Normal strength at 5/5 x4 extr - Studies Microbiology Data (last 24 hrs): 04/30/21 20:00 Blood - Blood Aerobic Blood Culture - Final No growth in 5 days. 04/30/21 20:00 Blood - Blood Anaerobic Blood Culture - Final No growth in 5 days. Assessment And Plan - Current Problems (Diagnosis) (1) Colitis Current Visit: Yes Status: Acute (2) Essential hypertension Current Visit: Yes Status: Acute (3) GERD (gastroesophageal reflux disease) Current Visit: Yes Status: Acute Physician Review Additional Text: Physical exam GEN: Alert, oriented, uncomfortable appearing HEENT: Normal conjunctiva, sclera anicteric CV: Regular rate and rhythm, no edema Pulm: Non-labored respiration on room air, clear to auscultation bilaterally ABD: Soft, nontender, no distention Neuro: Normal speech, normal affect Problem List Leukocytosis, intractable vomiting, diarrhea, abdominal pain secondary to descending colitis Hypertension GERD Arthritis Patient with abdominal pain with soft diet. Antibiotics discontinued Continue IV protonix. Advanced diet as tolerated Blood cultures with no growth. No diarrhea. Stool is formed. Stool culture: No organism isolated Continue other home medications. Monitor for 1 more day. DVT PPX: Lovenox Code status: Full
[2021-05-07] MEDS: MORPHINE 2 MG/ML SYR IV PRN (04:22)
[2021-05-07] MEDS: ONDANSETRON 4 MG/2 ML VIAL IV PRN (04:23)
[2021-05-07 05:43] LABS: Absolute Lymphocytes (CBC) 1.3 K/uL (0.7-4.9); Basophils % 1.1 % (0-1.3); Hematocrit 36.4 % (36.0-45.0); Lymphocytes % 24.9 % (15.3-44.8); MPV 10.4 fL (7.6-11.3); RBC Red Blood Cell Count 3.79 M/uL (3.86-4.86)
[2021-05-07 05:55] LABS: Potassium 3.6 mmol/L (3.5-5.1)
[2021-05-07] MEDS ORDERED: POTASSIUM CL SA 10 MEQ TAB PO ONE (08:00)
[2021-05-07] MEDS ORDERED: ENOXAPARIN 40 MG/0.4 ML SQ SCH (09:00)
[2021-05-07] MEDS: PANTOPRAZOLE 40 MG INJ IVP SCH (11:12)
[2021-05-07] MEDS: TELMISARTAN PO SCH (11:14)
[2021-05-07] MEDS: HCTZ PO SCH (11:14)
[2021-05-07] MEDS ORDERED: PANTOPRAZOLE 40MG TABLET PO SCH (16:30)
[2021-05-07] MEDS ORDERED: SUCRALFATE 1GM/10ML UCUP PO SCH (16:30)
[2021-05-07 16:50] VITALS: BP 161/85; TEMP 98.1
[2021-05-07] MEDS ORDERED: ENSURE HIGH PROTEIN 237 ML CAN PO SCH (21:00)
== END 2021-05-07 17:44 | disposition home or self-care (01) | DRG 871 ==
LOC: ER 14:52 → ERHOLD 20:18 → 2ND 23:52
PROVIDERS: ADMIT Hospitalist; ATTEND Hospitalist
DX: A41.9 Sepsis, unspecified organism (principal); R57.1 Hypovolemic shock; K52.9 Noninfective gastroenteritis and colitis, unspecified; I10 Essential (primary) hypertension; K21.9 Gastro-esophageal reflux disease without esophagitis; M19.90 Unspecified osteoarthritis, unspecified site; R00.0 Tachycardia, unspecified; Z20.822 Contact with and (suspected) exposure to COVID-19
CPT/HCPCS: 36415; 74177; 80048; 80053; 80061; 80076; 81003; 83605; 83690; 83735; 84132; 84145; 84439; 84443; 85025; 87040; 87045; 87046; 87177; 87209; 93005; 99285; C9113; J0744; J1650; J2270; J2405; J2550; J3475; J3480; J7030; J7040; J7050; Q9967; U0003